=== PATIENT | male | born 1990 | race Caucasian/White ===

== ENCOUNTER 2021-12-21 21:32 | Emergency (ER) | payer OTHER ==
[2021-12-22 00:04] LABS: BASOPHIL 0.3 % (0-2); EOSINOPHIL 0.3 % (0-5); HCT 44.7 % (42.0-52.0); HGB 15.1 g/dl (13.2-18.0); LYMPHOCYTE 14.3 % (15-48); MCH 28.1 pg (25.0-31.0); MCHC 33.8 g/dL (32.0-36.0); MCV 83.1 fL (78.0-100.0); MPV 9.2 fL (6.0-9.5); NEUTROPHIL 79.8 % (41-80); NRBC 0; PLT 291 K/uL (150-400); RBC 5.38 M/uL (4.70-6.00); RDW 13.2 % (11.5-14.0); WBC 10.6 K/uL (4.0-10.5)
[2021-12-22 00:26] LABS: CORONAVIRUS 2019 SARS-COV-2 NEGATIVE (NEGATIVE); INFLUENZA A NAA NEGATIVE (NEGATIVE)
[2021-12-22 00:28] LABS: ALBUMIN 4.1 g/dL (3.4-5.0); BILIRUBIN - TOTAL 0.7 mg/dL (0.2-1.0); BUN/CREAT RATIO (CALC) 21.1 RATIO; CREATININE 0.9 mg/dL (0.67-1.17); GLOBULIN (CALCULATION) 3.9 g/dL; POTASSIUM 3.8 mmol/L (3.5-5.1)
[2021-12-22] MEDS ORDERED: PHENERGAN25 M1 PO (01:39)
[2021-12-22] MEDS ORDERED: ONDANSETRON ODT4 MG PO (01:39)
== END 2021-12-22 02:20 | disposition home or self-care (01) ==
LOC: FER 21:32
PROVIDERS: Nurse Practitioner Family
DX: R11.2 Nausea with vomiting, unspecified (principal); R19.7 Diarrhea, unspecified; R10.13 Epigastric pain; I10 Essential (primary) hypertension; Z79.899 Other long term (current) drug therapy; Z20.822 Contact with and (suspected) exposure to COVID-19
CPT/HCPCS: 36415; 80053; 85025; J2405; J7030; Q9967; U0002